=== PATIENT | male | born 1970 | race Hispanic/Latino ===

== ENCOUNTER → 2025-06-28 | Outpatient (REF) | payer BC ==
[~2025-06-28] MED LIST: IOPAMIDOL 370 MG/ML 100 ML INFUS..BTL INJ ONE; METOPROLOL TARTRATE 25 MG TAB ONE; METOPROLOL TARTRATE INJ 1 MG/ML VIAL ONE; SODIUM CHLORIDE 0.9% 100 ML ONE
[2025-06-28 09:01] LABS: EST GLOMERULAR FILTRATION RATE 91.0 ML/MIN (>=60)
== END ==
LOC: CT 07:42
PROVIDERS: ATTEND Internal Medicine Cardiovascular Disease
DX: R07.9 Chest pain, unspecified (principal); R94.39 Abnormal result of other cardiovascular function study
CPT/HCPCS: 36415; 75574; 75580; 82565; 84520; J7050; Q9967